=== PATIENT | female | born 1945 ===

== ENCOUNTER 2017-03-07 10:31 | Inpatient (IN) | payer MEDICARE ==
[~2017-03-07] VITALS: Ht 157.5 cm; Wt 79.7 kg
--- NOTE | ~2017-03-07 | CON ---
PATIENT'S NAME: CHUCKY CALL [facility] AGE: 72 Y [address] ROOM: [place] [address] LOCATION: [facility] [place] ADMIT DATE: 03/08/2017 Consultation DISCHARGE DATE: FAMILY PHYSICIAN: Aaron Herron MD ATTENDING PHYSICIAN: Aaron Herron DATE OF CONSULTATION: 03/08/2017 REFERRING PHYSICIAN: JEREMIAH FAIRCHILD REFERRING PHYSICIAN: Dr. Herron. REASON FOR CONSULTATION: JESUS. HISTORY OF PRESENT ILLNESS: A 72-year-old female with history of hypertension, peg-bcynpxf-pflqynxxf diabetes, coronary artery disease, admitted with severe JESUS. Nephrology consultation has been called for the same reason. As per the patient, she was not feeling well for the last few days, having significant nausea, vomiting, and also having poor oral intake. She was significantly depressed and was having grief episode and was not feeling well. However, she was also noted to be on BUBBA inhibitor for her hypertension management. Creatinine as per our record was 0.7 in 2014. On admission, the creatinine was 4.5 and today is 4.8. Urine output has not been measured since admission, so we do not have any idea about intake and output. She is on 50 mL of normal saline per hour. Appears to be slightly dry on my exam. However, she mentioned that her nausea and vomiting has improved significantly. Denied any significant chest pain or shortness of breath or palpitation. No significant urinary symptoms including dysuria, urgency, hesitancy, nocturia, however, UA did show home 1+ LE and few wbc. PAST MEDICAL HISTORY: 1. Hypertension. 2. Insulin-dependent diabetes mellitus. 3. Coronary artery disease. PAST SURGICAL HISTORY: 1. Cholecystectomy. 2. Cardiac catheterization x2 and placement of 2 stents. SOCIAL HISTORY: Denies any smoking, alcohol. Lives with her in [place]. She has 4 children and has many grandchildren, who do not live with her at this time. FAMILY HISTORY: History of hypertension and diabetes in both parents. No significant history of renal failure or dialysis in the family.PATIENT'S NAME: CHUCKY CALL [facility] AGE: 72 Y [address] ROOM: [place] [address] LOCATION: [facility] ADMIT DATE: 03/08/2017 Consultation DISCHARGE DATE: FAMILY PHYSICIAN: Aaron Herron MD ATTENDING PHYSICIAN: Aaron Herron REVIEW OF SYSTEMS: GENERAL: No fever. No chills or rigor. HEENT: No sore throat. No sinus congestion. CVS: No chest pain. No exertional shortness of breath. No leg swelling. RESPIRATORY: No shortness of breath. No cough. No wheezing. GENITOURINARY: No pain with urination. No increased frequency. No nocturia. GASTROINTESTINAL: No abdominal pain. No abdominal distention. No nausea or vomiting. NEUROLOGIC: No weakness. No seizures. SKIN: No rash. No itching. ALLERGIES: No seasonal allergy. No hayfever. ENDOCRINE: No heat intolerance. No cold intolerance. PSYCHIATRIC: No sadness. No crying spells. No history of panic attack. PHYSICAL EXAMINATION: VITAL SIGNS: Blood pressure 130/80, pulse 70, respiratory rate 18, and saturation 96% to 98% on room air. GENERAL: Not in apparent distress. HEAD: Dry mucous membrane. Bilateral PERRLA, EOMI. NECK: Flat JVD. No thyromegaly. No lymphadenopathy. CVS: S1 and S2 normal, regular rate and rhythm. No murmur, rub, gallop. CHEST: Bilateral air entry equal. No wheeze or rales. ABDOMEN: Soft, nontender, nondistended. Bowel sounds present. EXTREMITIES: No cyanosis, clubbing, jaundice. No dependent edema. MUSCULOSKELETAL: No limitation of range of motion. SKIN: No pallor, no cyanosis, no icterus. Decreased skin turgor. FILM READER: Alert and oriented x3. No gross findings. LABORATORY DATA: Lactate 2.8. Troponin less than 0.010. CBC: Hemoglobin 8.9, WBC 11.4, platelets 301. Chemistry: Sodium 139, potassium 3.2, chloride 104, bicarbonate 23, BUN 33, creatinine 4.8, glucose 201, calcium 7.4, albumin 3. Total protein 7.2. INR 1, PTT 31. UA: Specific gravity 1.010, pH 6.5, positive LE, negative nitrite, negative bacteria, trace protein, 0-2 wbc's, no rbc, 0-2 epithelial cells, no bacteria. ASSESSMENT AND PLAN: 1. Acute kidney injury versus acute kidney injury on chronic kidney disease. Baseline creatinine is unknown; however, the patient has hypertension and diabetes for a long time, which can predispose significant chronic kidney disease. Our records have baseline creatinine of 0.7 in 2015, however, we do not have any data since then. Presumable etiology of this acute renal insufficiency is possibly acute tubular necrosis in the context of nausea, vomiting, poor oral intake with depression along with poor oral intake. The patient still appears to be significantly dry on my exam with dry mucous membranes and flat JVD. We will aggressively hydrate the patient with 1 L of normal saline bolus followed by 150 to 200 mL/h. We will closely monitor the intake and output and avoid fluid overload. We will do a renal ultrasound to look at renal cortical architecture and renal morphology. Please send a urinalysis and urine lytes including sodium, potassium, creatinine, and osmolality. The patient has been explained for the possible need of renal replacement therapy if renal function continues to worsen. However, the patient wants to avoid it as at any cost. If renal failure does not improve with conservative management, we may need to consider renal replacement therapy as well as a possible renal biopsy.PATIENT'S NAME: CHUCKY CALL [facility] AGE: 72 Y [address] ROOM: [place] [address] LOCATION: [facility] [place] ADMIT DATE: 03/08/2017 Consultation DISCHARGE DATE: FAMILY PHYSICIAN: Aaron Herron MD ATTENDING PHYSICIAN: Aaron Herron 2. Hypertension. Adequately controlled on current regimen of BUBBA inhibitor and Coreg, but however, we will withhold BUBBA inhibitor in the context of an acute kidney injury. If the blood pressure goes up above the acceptable range, we may add hydralazine or amlodipine to control blood pressure. 3. Type 2 diabetes. Management as per primary team. Continue Accu-Chek. 4. Depression. Currently feeling much better. Family is trying to talk to her. May need a psychiatric evaluation if significant grief for major depressive disorder is suspected. Thank you for allowing me to participate in this patient's care. We will closely monitor the patient's progress along with you. JEREMIAH FAIRCHILD MD /modl /[id number] d: 03/08/17 2305 t: 04/15/17 1001, CONSULTATION REPORT
--- NOTE | ~2017-03-07 | DS ---
PATIENT'S NAME: CHUCKY CALL [facility] AGE: 72 Y [address] ROOM: [id number] [place], [place] [address] LOCATION: [facility] [place] ADMIT DATE: 03/08/2017 Discharge Summary DISCHARGE DATE: 03/12/2017 FAMILY PHYSICIAN: Aaron Herron MD ATTENDING PHYSICIAN: Aaron Herron FINAL DIAGNOSES: 1. Acute kidney failure. 2. Urinary tract infection. 3. Gastritis. 4. Insulin-dependent type 2 diabetes mellitus. 5. Coronary artery disease. 6. Hypertension. 7. Osteoporosis. REASON FOR ADMIT: This 72-year-old female presents to the clinic on the date of admit with complaints of nausea, vomiting, and diarrhea. She certainly looked clinically dehydrated. We did go ahead and make her a direct admit from clinic. She was found to be in acute renal failure on admission with a creatinine at 4.1. She subsequently worsened in the next couple of days and creatinine up to 4.8. Nephrology was consulted immediately and did have IV fluids going, because of bicarb shortage was, we were not able to do that. We did ultrasound on her. She did not show any signs of obstruction, and it was felt to be volume related. She did subsequently show improvements with creatinine as time went on and was looking better at the time of discharge as her creatinine was down to 3.2 on the date of discharge. She was feeling much better from her UTI standpoint that ended up showing Enterobacter, which was susceptible to the Rocephin. She subsequently did not have any further fevers during her hospitalization. The morning of March 12, 2017, she was doing much better and was deemed ready for discharge once we got clearance from nephrology. She will follow up with Dr. Macedo in the [facility] in 2 weeks. Follow up with myself in 1 week, which is being on . We will plan to get some labs at that time, kind of see where her kidney functions at. DISCHARGE MEDICATIONS: 1. Norvasc 5 mg 1 p.o. q.h.s. 2. Her Vasotec is currently on hold. 3. Aspirin 81 mg daily. 4. Carvedilol 12.5 mg b.i.d. 5. Protonix 40 mg once a day. 6. Phenobarbital 60 mg b.i.d. 7. Metformin 1000 mg b.i.d. is currently on hold because her kidney function. 8. Atorvastatin 80 mg q.h.s. 9. Tylenol on a p.r.n. basis. PATIENT'S NAME: CHUCKY CALL [facility] AGE: 72 Y [address] ROOM: [place] [address] LOCATION: [facility] [place] ADMIT DATE: 03/08/2017 Discharge Summary DISCHARGE DATE: 03/12/2017 FAMILY PHYSICIAN: Aaron Herron MD ATTENDING PHYSICIAN: Aaron Herron 10. Vitamin D 50,000 International Units once a week. 11. Levemir 40 units once a day. 12. She will also continue on an oral antibiotic with some Ceftin. DISCHARGE MEDICATIONS: She will call or return if she has any further problems or concerns. AARON HERRON MD TAB/modl /[id number] d: 03/21/17 0424 t: 04/15/17 1004, DISCHARGE SUMMARY
[~2017-03-07 10:31] MED LIST: AMOXICILLIN500 M1 PO; AUGMENTIN XR1000 MG PO; CARVEDILOL6.25 MG PO; GLYBURIDE5 MG PO; HYDROCHLOROTH12.5 MG PO; LEVEMIR FL100 UNIT/1 SUB-Q; METFORMIN HCL1000 MG PO; NITROSTAT0.4 MG SL; PERCOCET 5-3251 EACH PO; PHENOBARBITAL64.8 MG PO; TYLENOL EXTRA500 MG PO; VASOTEC10 MG PO
--- NOTE | 2017-03-07 12:02 | NUR ---
Pt is 72 y/o female admit for complicated UTI/n/v for . PT is alert and oriented x3. Resides at home with her . Speaks Arabic. Understands some Lao. Allergy to Bactrim. REd and yellow bracelet on. Pt fell Saturday in shower and her R)shoulder and leg are sore. Hx headaches,htn,hypercholest, DM type 2,occas edema in legs. Equipment Operating Engineer present.
[2017-03-07 13:10] LABS: BASOPHIL # 0.1 K/uL (0.0-0.2); BASOPHIL % 0.8 %; EOSINOPHIL % 0.1 %; HEMATOCRIT 38.8 % (33.0-46.0); HEMOGLOBIN 13.2 g/dL (10.0-15.0); IMMATURE GRANULOCYTE # 0.1 K/uL (0.0-0.3); IMMATURE GRANULOCYTE % 0.4 %; LYMPHOCYTE # 1.5 K/uL (0.8-4.0); MCH 30.6 pg (27.0-34.0); MONOCYTE # 0.7 K/uL (0.0-1.0); MONOCYTE % 5.8 %; MPV 11.5 fl (9.4-12.4); NEUTROPHIL % 79.9 %; NRBC % 0 /100WBC (0-0.00); PLATELET COUNT 344 K/uL (150-450); RBC 4.31 M/uL (3.50-5.50); RDW-CV 12.1 % (11.9-14.6); WBC 11.3 K/uL (4.0-11.0)
[2017-03-07 13:29] LABS: CALCIUM 8.4 mg/dL (8.5-10.5); POTASSIUM 4.2 mMol/L (3.7-5.1); TOTAL BILIRUBIN 0.4 mg/dL (0.0-1.5); TOTAL PROTEIN 7.2 g/dL (6.0-8.4)
[2017-03-07 13:30] LABS: ANION GAP 23.2 (10.0-19.0)
[2017-03-07 13:31] LABS: CREATININE 4.5 mg/dL (0.5-1.1)
--- NOTE | 2017-03-07 15:09 | NUR ---
Received orders to initiate Physical Therapy. Per RN, patient currently has elevated blood glucose and is very nauseous, so unable to evaluate today. Will attempt to evaluate patient tomorrow. Linda Michele, PT 03/07/17
--- NOTE | 2017-03-07 16:00 | NUR ---
Significant Event: Patient arrived to floor at 1130. Up with 1 assist and a wheeled walker. Denies pain, but did have a fall on Saturday, 03/04. Zofran given times one at 1345. Patient's blood glucose level noted at 431. Dr. Herron notified and patient received 20 units of levemir and 12 units of novolog sub-q for the blood sugar. Daughter in room and attentive to patient's needs. Will recheck patient's blood sugar at [address] Herron's orders. Did tell daughter that if patient feels like blood sugar is too low then call us and we can check it anytime. Follow up: Continue to monitor.
[2017-03-07] MEDS ORDERED: VASOTEC10 MG PO (18:02)
[2017-03-07] MEDS ORDERED: PHENOBARBITAL64.8 MG PO (18:04)
[2017-03-07] MEDS ORDERED: COREG12.5 MG PO (18:05)
[2017-03-07] MEDS ORDERED: GLUCOPHAGE1000 MG PO (18:05)
[2017-03-07] MEDS ORDERED: LIPITOR80 MG PO (18:06)
[2017-03-07] MEDS ORDERED: DRISDOL 5050000 UNIT PO (18:06)
[2017-03-07] MEDS ORDERED: LEVEMIR FL100 UNIT/1 SUB-Q (18:16)
--- NOTE | 2017-03-07 19:09 | NUR ---
Significant Event: took over patient cares at 1545. patient resting quietly in bed. 1700 accucheck 351, insulin given per sliding scale. 1800 BP 125/60, HR 74, po coreg given. family at bedside. Follow up:
--- NOTE | 2017-03-08 04:12 | NUR ---
Patient alert and oriented x3, VSS, has slight communitcation barrier primary language is moldovan, throat is sore from vommiting, very unstable when ambulating one assist with walker and gaitbelt, denies need for pain medication, has rested well did have some jello this shift which made her throat feel better
[2017-03-08 05:30] LABS: BASOPHIL # 0.1 K/uL (0.0-0.2); BASOPHIL % 0.5 %; EOSINOPHIL # 0.1 K/uL (0.0-0.5); EOSINOPHIL % 0.9 %; HEMATOCRIT 34.2 % (33.0-46.0); HEMOGLOBIN 11.9 g/dL (10.0-15.0); IMMATURE GRANULOCYTE # 0.1 K/uL (0.0-0.3); IMMATURE GRANULOCYTE % 0.4 %; LYMPHOCYTE # 2.7 K/uL (0.8-4.0); LYMPHOCYTE % 23.6 %; MCHC 34.8 gm/dL (32.0-36.5); MCV 89.1 fl (83.0-98.0); MONOCYTE % 9.1 %; MPV 11.8 fl (9.4-12.4); NEUTROPHIL # (ANC) 7.5 K/uL (1.8-7.8); NEUTROPHIL % 65.5 %; NRBC % 0 /100WBC (0-0.00); PLATELET COUNT 301 K/uL (150-450); RBC 3.84 M/uL (3.50-5.50); RDW-CV 12.3 % (11.9-14.6); WBC 11.4 K/uL (4.0-11.0)
[2017-03-08 05:46] LABS: ANION GAP 15.2 (10.0-19.0); CALCIUM 7.4 mg/dL (8.5-10.5); CREATININE 4.8 mg/dL (0.5-1.1); POTASSIUM 3.2 mMol/L (3.7-5.1)
--- NOTE | 2017-03-08 11:41 | NUR ---
Met with patient and her at bedside today. Introduced myself and explained my role with the CM department. Per patient and she does well at home. Her and daughter, who also lives with her, help to take care of her. Per her , he is able to care for her and he does not have any concerns. Per patient her plan is to return home when she is medically cleared for discharge. They both deny any discharge needs or concerns. Will continue to follow.
--- NOTE | 2017-03-08 14:57 | NUR ---
Significant Event: Pt denies pain. No n/v this shift. Tolerating clear liquids. Up with 1 assist. Strict I&O and daily wt. Up in recliner and ambulated with PT in the halls. Had ultrasound of kidney/abd. 1 liter NS IV bolus then 150ml/hr. IV K+ x1 and PO K+ x1 for K+ level of 3.2. need urine sample for labs. Follow up:
[2017-03-08 18:19] LABS: BILIRUBIN URINE NEGATIVE (NEGATIVE); BLOOD URINE NEGATIVE /UL (NEGATIVE); GLUCOSE URINE 100 mg/dL (NEGATIVE); KETONE URINE 5 mg/dL (NEGATIVE); LEUKOCYTES URINE 25 /UL (NEGATIVE); NITRITE URINE NEGATIVE (NEGATIVE); PROTEIN URINE 30 mg/dL (NEGATIVE); SPEC GRAVITY URINE 1.015 (1.003-1.035); UROBILINOGEN URINE NORMAL (NORMAL)
[2017-03-08 18:22] LABS: COLOR URINE YELLOW (YELLOW)
[2017-03-08 18:23] LABS: TURBIDITY URINE 1+ (CLEAR)
[2017-03-08 18:36] LABS: AMORPHOUS URINE 1+ (NEGATIVE)
[2017-03-08 18:39] LABS: WBC URINE 0-2 #/HPF (NEGATIVE)
[2017-03-08 18:42] LABS: BACTERIA URINE FEW (NEGATIVE)
[2017-03-08 18:43] LABS: RBC URINE RARE #/HPF (NEGATIVE)
--- NOTE | 2017-03-09 03:56 | NUR ---
Pt. alert and oriented x3. VSS. Primary lang. is Turkish but does speak German - usually has someone that helps interprets. 1A with walker. IV in L) arm with IVF. Clear liquid diet. ACHS accuchecks with 4 units given at HS. Gave tylenol x1 for throbbing headache with relief. Emesis of 75ml noted at beginning of shift. Zofran given with relief. Strict I&O. Weight this am was 79.5kg. Pleasant and cooperative with cares.
[2017-03-09 05:29] LABS: BASOPHIL # 0.1 K/uL (0.0-0.2); BASOPHIL % 0.7 %; EOSINOPHIL # 0.2 K/uL (0.0-0.5); HEMATOCRIT 37.8 % (33.0-46.0); HEMOGLOBIN 12.6 g/dL (10.0-15.0); IMMATURE GRANULOCYTE # 0.1 K/uL (0.0-0.3); IMMATURE GRANULOCYTE % 0.4 %; LYMPHOCYTE # 2.3 K/uL (0.8-4.0); LYMPHOCYTE % 19.6 %; MCH 30.7 pg (27.0-34.0); MCHC 33.3 gm/dL (32.0-36.5); MONOCYTE # 1.1 K/uL (0.0-1.0); MONOCYTE % 9.5 %; NEUTROPHIL # (ANC) 7.9 K/uL (1.8-7.8); NEUTROPHIL % 67.8 %; NRBC % 0 /100WBC (0-0.00); RBC 4.11 M/uL (3.50-5.50); RDW-CV 12.6 % (11.9-14.6); WBC 11.7 K/uL (4.0-11.0)
[2017-03-09 05:32] LABS: PLATELET COUNT 212 K/uL (150-450)
[2017-03-09 07:13] LABS: CALCIUM 7.5 mg/dL (8.5-10.5); CREATININE 4.4 mg/dL (0.5-1.1); POTASSIUM 4.1 mMol/L (3.7-5.1)
[2017-03-09 07:14] LABS: ALBUMIN 2.4 gm/dL (3.5-5.0); ANION GAP 13.1 (10.0-19.0); TOTAL BILIRUBIN 0.2 mg/dL (0.0-1.5)
--- NOTE | 2017-03-09 15:38 | NUR ---
AAOx3. Cooperative with cares. Lithuanian/Swedish speaking. IV to LFA @100ml/hr. Gave PO Mylanta x2 (one before emesis). Zofran. PO Bicarb. Tolerating small amounts of full liquid diet. Up w/SBA, GRACE, golden. Family at bedside. VSS, afebrile, on RA.
[2017-03-10 04:45] LABS: BASOPHIL # 0.1 K/uL (0.0-0.2); BASOPHIL % 0.8 %; EOSINOPHIL # 0.2 K/uL (0.0-0.5); EOSINOPHIL % 1.9 %; HEMATOCRIT 36.1 % (33.0-46.0); HEMOGLOBIN 12.3 g/dL (10.0-15.0); IMMATURE GRANULOCYTE # 0.1 K/uL (0.0-0.3); IMMATURE GRANULOCYTE % 0.5 %; LYMPHOCYTE # 2.3 K/uL (0.8-4.0); LYMPHOCYTE % 18.1 %; MCH 31.2 pg (27.0-34.0); MCHC 34.1 gm/dL (32.0-36.5); MCV 91.6 fl (83.0-98.0); MONOCYTE # 1.2 K/uL (0.0-1.0); MONOCYTE % 9.6 %; MPV 11.3 fl (9.4-12.4); NEUTROPHIL # (ANC) 8.9 K/uL (1.8-7.8); NEUTROPHIL % 69.1 %; NRBC % 0 /100WBC (0-0.00); PLATELET COUNT 295 K/uL (150-450); RBC 3.94 M/uL (3.50-5.50); RDW-CV 12.7 % (11.9-14.6); WBC 12.9 K/uL (4.0-11.0)
--- NOTE | 2017-03-10 04:57 | NUR ---
Significant Event: Pt alert and oriented. Nauseated at HS, gave zofran x 1 at 2156 so HS meds were given at 2240. Only had sips and bites for supper. VSS, afebrile. No c/o pain. Cont with elise for accurate I&O's. AC/HS accuchecks. Follow up: Continue with full liquid diet. Enc activity as able.
[2017-03-10 05:05] LABS: ALBUMIN 2.1 gm/dL (3.5-5.0); ANION GAP 13.8 (10.0-19.0); POTASSIUM 3.8 mMol/L (3.7-5.1); TOTAL BILIRUBIN 0.2 mg/dL (0.0-1.5); TOTAL PROTEIN 5.5 g/dL (6.0-8.4)
[2017-03-10 05:07] LABS: CALCIUM 7.4 mg/dL (8.5-10.5); CREATININE 4.1 mg/dL (0.5-1.1)
--- NOTE | 2017-03-10 15:12 | NUR ---
AAOx3. Cooperative with cares. Up w/assist, GB, walker. Advanced to ADA diet for supper. No PRN meds given. VSS, afebrile, on RA. Denies N/V/D, and pain. BS AC/HS w/SSI. PIV to LFA decreased to 50ml/hr x20hr, then s/l @noon on Sunday 03/11.
[2017-03-11 05:23] LABS: ANION GAP 10.8 (10.0-19.0); CREATININE 3.7 mg/dL (0.5-1.1); POTASSIUM 3.8 mMol/L (3.7-5.1)
[2017-03-11 05:25] LABS: CALCIUM 7.4 mg/dL (8.5-10.5)
--- NOTE | 2017-03-11 07:34 | NUR ---
Significant Event: Pt alert and oriented. Up in chair beginning of shift. Ambulated in cannon x 1 with walker and tolerated well. Had 1 emesis of 75mls. Gave zofran x 2 with the last dose at 0237 and Mylanta at 0257. Afebrile this shift. Saline lock at 1200. Follow up:
--- NOTE | 2017-03-11 13:06 | NUR ---
Attempted to see patient at 1255, but she was in the restroom. Will try to see her later today to make sure she has no new needs prior to discharge.
--- NOTE | 2017-03-11 17:12 | NUR ---
AAOx3. Cooperative with cares. Up w/SBA, GRACE, walker. IV to LFA s/l'd. Strict I/O. Tolerating soft diet well. Gave Mylanta x1 today with relief. BS AC/HS with moderate SSI given. Prefers bottled water. Possible d/c tomorrow if ok w/nephrology.
--- NOTE | 2017-03-12 05:31 | NUR ---
Significant Event: Pt feeling pretty well this shift. No c/o pain or nausea. Joya still inplace and early this morning when up to bathroom she noticed some blood from around her catheter. Pt would like catheter out. Daily wt 78.9 standing. Follow up:
[2017-03-12 08:36] LABS: ANION GAP 13.5 (10.0-19.0); CALCIUM 7.8 mg/dL (8.5-10.5); CREATININE 3.2 mg/dL (0.5-1.1); POTASSIUM 3.5 mMol/L (3.7-5.1)
[2017-03-12] MEDS ORDERED: ASPIRIN LO-DOSE81 MG PO (11:53)
[2017-03-12] MEDS ORDERED: PROTONIX40 MG PO (11:54)
[2017-03-12] MEDS ORDERED: TYLENOL EXTRA500 MG PO (11:55)
[2017-03-12] MEDS ORDERED: NORVASC5 MG PO (12:29)
--- NOTE | 2017-03-12 13:15 | NUR ---
DISCHARGE Pt. was explained discharge instructions, educated on new medications. See discharge summary for specific info. Verbalized understanding of teaching, no questions or concerns. Post bladder scan was 13 mls. Patient voided successfully after catheter removal. Left with all belongings and prescriptions. Taken to front door by aide and driven home by family.
== END 2017-03-12 13:15 | disposition disaster alternative care site (69) | DRG 682 ==
LOC: GMSU 10:31 → EDSTATUS 11:00 → GMSU 03-08 07:04
PROVIDERS: Internal Medicine Nephrology; ADMIT Family Medicine
DX: I12.9 Hypertensive chronic kidney disease with stage 1 through stage 4 chronic kidney disease, or unspecified chronic kidney disease (principal); N17.0 Acute kidney failure with tubular necrosis; N39.0 Urinary tract infection, site not specified; E11.22 Type 2 diabetes mellitus with diabetic chronic kidney disease; N18.9 Chronic kidney disease, unspecified; Z79.4 Long term (current) use of insulin; Z79.84 Long term (current) use of oral hypoglycemic drugs; Z79.82 Long term (current) use of aspirin; I25.10 Atherosclerotic heart disease of native coronary artery without angina pectoris; Z95.5 Presence of coronary angioplasty implant and graft; F32.9 Major depressive disorder, single episode, unspecified; M81.0 Age-related osteoporosis without current pathological fracture; E78.2 Mixed hyperlipidemia; E66.9 Obesity, unspecified; Z68.32 Body mass index [BMI] 32.0-32.9, adult
CPT/HCPCS: G0378; G0379; J0696; J1650; J2405; J3480; J7030; J7040; J7050

== ENCOUNTER → 2017-03-26 | Outpatient (CLI) | payer MEDICARE ==
[~2017-03-26] MED LIST changes: +ASPIRIN LO-DOSE81 MG PO; +COREG12.5 MG PO; +DRISDOL 5050000 UNIT PO; +GLUCOPHAGE1000 MG PO; +LIPITOR80 MG PO; +NORVASC5 MG PO; +PROTONIX40 MG PO
== END | disposition disaster alternative care site (69) ==
LOC: LGSMG 11:42
DX: N28.9 Disorder of kidney and ureter, unspecified (principal)